=== PATIENT | female | born 1930 | race African-American/Black ===

== ENCOUNTER 2017-06-05 15:19 | Emergency (ER) | payer OTHER ==
[~2017-06-05] VITALS: Ht 160 cm; Wt 62.0 kg
[2017-06-05] MEDS ORDERED: METO50 PO (16:08)
[2017-06-05] MEDS ORDERED: HYDR25TA84 PO (16:08)
[2017-06-05] MEDS ORDERED: ASPI81 PO (16:08)
[2017-06-05] MEDS ORDERED: DONE10TA PO (16:08)
[2017-06-05] MEDS ORDERED: AMLO-512 PO (16:08)
[2017-06-05 19:00] VITALS: BP 168/101
== END 2017-06-05 19:33 | disposition home or self-care (01) ==
LOC: EMS 15:22
DX: S43.401A Unspecified sprain of right shoulder joint, initial encounter (principal); S83.91XA Sprain of unspecified site of right knee, initial encounter; S83.92XA Sprain of unspecified site of left knee, initial encounter; I10 Essential (primary) hypertension; Z79.82 Long term (current) use of aspirin; W06.XXXA Fall from bed, initial encounter; Y93.89 Activity, other specified; Y92.89 Other specified places as the place of occurrence of the external cause; Y99.8 Other external cause status
CPT/HCPCS: 72170; 99284

== ENCOUNTER 2019-02-08 03:36 | Emergency (ER) | payer SELFPAY ==
[~2019-02-08] VITALS: Ht 160 cm; Wt 69.0 kg
[~2019-02-08 03:36] MED LIST: AMLO-512 PO; ASPI81 PO; DONE10TA8 PO; HYDR25TA84 PO; METO50 PO
[2019-02-08 03:49] LABS: BASOPHILS % (AUTO) 0.8 % (0.0-2.0); EOSINOPHILS % (AUTO) 0.3 % (1.0-6.0); HEMATOCRIT 32.7 % (36-46); HEMOGLOBIN 10.7 g/dL (12.0-16.0); LYMPHOCYTES # (AUTO) 0.5 K/uL (1.0-4.8); LYMPHOCYTES % (AUTO) 6.2 % (22.0-44.0); MEAN CORPUSCULAR HEMOGLOBIN 31.7 pg (26.0-34.0); MEAN CORPUSCULAR HGB CONC 32.9 G/dL (31.0-37.0); MEAN CORPUSCULAR VOLUME 97 fL (80-100); MONOCYTES # (AUTO) 0.6 K/uL (0.1-1.0); MONOCYTES % (AUTO) 7.3 % (2.0-9.0); NEUTROPHILS # (AUTO) 6.9 K/uL (1.8-7.7); PLATELET COUNT (AUTO) 300 K/uL (150-450); RED BLOOD CELL COUNT(AUTO) 3.38 MIL/uL (4.00-5.20); RED CELL DISTRIBUTION WIDTH 16.9 % (11.5-14.5)
[2019-02-08 03:50] LABS: NEUTROPHILS % (AUTO) 85.4 % (40.0-70.0)
[2019-02-08] MEDS ORDERED: RAPID SEQUENCE KIT [RSI] 1 EACH KIT ONE (03:54)
[2019-02-08 03:59] LABS: CALCIUM, TOTAL 9.6 mg/dL (8.8-10.5); CREATININE 1.42 mg/dL (0.60-1.30); POTASSIUM 4.2 mmol/L (3.5-5.1)
[2019-02-08 04:00] LABS: INR 1.1 (0.9-1.1); PROTHROMBIN TIME 11.2 SEC (9.4-11.6)
[2019-02-08 04:04] LABS: ALBUMIN 3.2 g/dL (3.4-5.0); BILIRUBIN,TOTAL 1.1 mg/dL (0.1-1.0); TOTAL PROTEIN, SERUM 6.8 g/dL (6.4-8.2)
[2019-02-08] MEDS ORDERED: DSS100 PO (04:04)
[2019-02-08] MEDS ORDERED: MULT1CAP32 PO (04:04)
[2019-02-08] MEDS ORDERED: ATOR10TA84 PO (04:04)
[2019-02-08] MEDS ORDERED: DILT30 PO (04:04)
[2019-02-08] MEDS ORDERED: POTA-9 PO (04:04)
[2019-02-08] MEDS ORDERED: FURO20 PO (04:04)
[2019-02-08] MEDS ORDERED: ALBU8.5H8 IH (04:05)
[2019-02-08] MEDS ORDERED: IOVERSOL 350 MG/ML 100 ML VIAL ONE (04:07)
[2019-02-08] MEDS ORDERED: SODIUM CHLORIDE 0.9% 100 ML ONE (04:07)
[2019-02-08] MEDS ORDERED: ALTEPLASE 6.2 MG in WATER FOR INJECTION,STERILE 6.2 ML IV ONE (04:30)
[2019-02-08] MEDS ORDERED: ALTEPLASE 56 MG in WATER FOR INJECTION,STERILE 56 ML IV ONE (04:30)
[2019-02-08] MEDS ORDERED: ALTEPLASE PER STROKE PROTOCOL CLINICAL ONE (04:30)
[2019-02-08 04:49] LABS: APPEARANCE,URINE CLEAR (CLEAR); BILIRUBIN,URINE NEGATIVE (NEGATIVE); GLUCOSE, URINE (UA) NEGATIVE (NEGATIVE); KETONES,URINE NEGATIVE (NEGATIVE); LEUKOCYTE ESTERASE ,URINE NEGATIVE (NEGATIVE); NITRATE,URINE NEGATIVE (NEGATIVE); OCCULT BLOOD,URINE NEGATIVE (NEGATIVE); PH,URINE 7.5 (5.0-8.0); PROTEIN,URINE NEGATIVE (NEGATIVE)
[2019-02-08 04:54] LABS: AMPHET/METH SCREEN,URINE NEGATIVE (NEGATIVE); BARBITURATE SCREEN, URINE NEGATIVE (NEGATIVE); BENZODIAZEPINES SCREEN,URINE NEGATIVE (NEGATIVE); CANNABINOID SCREEN,URINE NEGATIVE (NEGATIVE); COCAINE SCREEN,URINE NEGATIVE (NEGATIVE); METHADONE SCREEN, URINE NEGATIVE (NEGATIVE); OPIATE SCREEN,URINE NEGATIVE (NEGATIVE); PHENCYCLIDINE SCREEN,URINE NEGATIVE (NEGATIVE)
[2019-02-08 04:56] LABS: BACTERIA,URINE None Seen /HPF (None Seen); HYALINE CASTS, URINE 0-2 /LPF (None Seen); RBC,URINE 0-2 /HPF (0-2); SQUAMOUS EPITHELIAL CELL,UR Rare /LPF (None Seen); WBC,URINE 0-2 /HPF (0-5)
[2019-02-08 06:15] VITALS: BP 169/103
[2019-02-08] MEDS ORDERED: CefTRIAXone 1 GM/DEXTROSE 50 ML IV ONE (06:15)
[2019-02-08] MEDS ORDERED: AZITHROMYCIN 500 MG/NS 250 ML IV ONE (06:15)
[2019-02-08] MEDS ORDERED: HydrALAZINE HCL 20 MG/ML VIAL IVP ONE (06:15)
== END 2019-02-08 06:45 | disposition short-term general hospital (02) ==
LOC: EMS 03:36
DX: I63.9 Cerebral infarction, unspecified (principal); I11.0 Hypertensive heart disease with heart failure; I50.9 Heart failure, unspecified; F03.90 Unspecified dementia, unspecified severity, without behavioral disturbance, psychotic disturbance, mood disturbance, and anxiety; Z79.82 Long term (current) use of aspirin; Z79.899 Other long term (current) drug therapy
CPT/HCPCS: 31500; 36415; 37195; 70450; 70496; 71045; 80053; 80307; 81001; 82962; 84484; 85025; 85610; 85730; 87040; 87077; 87186; 87205; 93005; 96365; 96375; 99291; J0360; J0696; J2997; J7050; Q9967; 94002; J0456